=== PATIENT | female | born 1990 | race Native Hawaiian/Other Pacific Islander ===

== ENCOUNTER 2018-03-20 02:00 | Emergency (ER) | payer SELFPAY ==
[2018-03-20 02:53] VITALS: BP 112/65; PULSE 76; RESP 16; TEMP 97.9
--- NOTE | 2018-03-20 02:54 | ED PDOC ---
HPI: Psych/Substance Abuse Time Seen by Provider: 03/20/18 02:34 Chief Complaint (Nursing): Alcohol Ingestion Chief Complaint (Provider): Alcohol Ingestion History Per: Patient, Family () History/Exam Limitations: no limitations Onset/Duration Of Symptoms: Mins (prior to arrival) Current Symptoms Are (Timing): Better Additional Complaint(s): 28 year old [place] female with pmhx of arthritis presents to the ED with for evaluation of alcohol intoxication. As per , patient may have administered an illicit substance in her drink, but after vomiting prior to arrival, patient is now awake and alert with no complaints. PMD: none provided Past Medical History Reviewed: Historical Data, Nursing Documentation, Vital Signs Vital Signs: Last Vital Signs Temp 97.5 F L 03/20/18 02:07 Pulse 86 03/20/18 02:07 Resp 18 03/20/18 02:07 BP 123/71 03/20/18 02:07 Pulse Ox 100 03/20/18 02:07 - Medical History PMH: Arthritis - Surgical History Surgical History: No Surg Hx - Family History Family History: States: Unknown Family Hx - Social History Current smoker - smoking cessation education provided: No Alcohol: Social Drugs: Denies - Allergies Allergies/Adverse Reactions: Allergies Allergy/AdvReac Type Severity Reaction Status Date / Time No Known Allergies Allergy Verified 03/20/18 03:25 Review of Systems ROS Statement: Except As Marked, All Systems Reviewed And Found Negative Gastrointestinal: Positive for: Vomiting Psych: Positive for: Other (possible alcohol intoxication) Physical Exam - Reviewed Nursing Documentation Reviewed: Yes Vital Signs Reviewed: Yes - Physical Exam Appears: Positive for: No Acute Distress Head Exam: Positive for: ATRAUMATIC, NORMOCEPHALIC Skin: Positive for: Normal Color, Warm, Dry Eye Exam: Positive for: Normal appearance ENT: Positive for: Normal ENT Inspection Neck: Positive for: Normal, Painless ROM, Supple Cardiovascular/Chest: Positive for: Regular Rate, Rhythm Respiratory: Positive for: Normal Breath Sounds. Negative for: Accessory Muscle Use, Respiratory Distress Gastrointestinal/Abdominal: Positive for: Normal Exam, Soft. Negative for: Tenderness Back: Positive for: Normal Inspection Extremity: Positive for: Normal ROM Neurologic/Psych: Positive for: Alert (and awake), Oriented (x3) - ECG O2 Sat by Pulse Oximetry: 100 (RA) Pulse Ox Interpretation: Normal Medical Decision Making Medical Decision Making: Time: 239 Initial Impression: 28 year old female presenting with alcohol use Initial Plan: --At this time, patient is declining lab work and is requesting to be discharged home. She is stable for d/c accompanied by sober . Scribe Attestation: Documented by Felisha Wheat, acting as a scribe for Alf Pratt MD. Provider Scribe Attestation: All medical record entries made by the Scribe were at my direction and personally dictated by me. I have reviewed the chart and agree that the record accurately reflects my personal performance of the history, physical exam, medical decision making, and the department course for this patient. I have also personally directed, reviewed, and agree with the discharge instructions and disposition. Disposition - Clinical Impression Clinical Impression: Alcohol intoxication - Patient ED Disposition Is Patient to be Admitted: No - Disposition Disposition: Routine/Home Disposition Time: 02:41 Condition: STABLE Instructions: Alcohol Use - When Is Drinking a Problem? Forms: [employer] (Jordanian)
[2018-03-20 02:55] VITALS: O2SAT 100
== END 2018-03-20 02:52 | disposition home or self-care (01) ==
LOC: H.ER 02:00
DX: F10.129 Alcohol abuse with intoxication, unspecified (principal)